=== PATIENT | male | born 1985 | race African-American/Black ===

== ENCOUNTER 2016-11-11 16:31 | Emergency (ER) | payer SELFPAY ==
[~2016-11-11] VITALS: Ht 185.4 cm; Wt 107.0 kg
[~2016-11-11 16:31] MED LIST: DOXY100T PO; Z.0.NO CURRENT MEDS
[2016-11-11 16:35] VITALS: BP 125/74; PULSE 71; RESP 14; TEMP 97.6; O2SAT 98
--- NOTE | 2016-11-11 17:41 | PD ---
HPI . Penile discharge 2 days Chief Complaint: Complaint Time Seen by Provider: 17:41 Travel History International Travel<30 days: No Contact w/Intl Traveler<30days: No Traveled to known affect area: No History of Present Illness HPI 31-year-old male with no significant past medical history here with complaints of penile discharge for 2 days. Patient said he had unprotected sex proximally 4 days ago and noticed the penis discharge about 2 days ago. Patient tells me the discharge is mucus-looking. He denies any pain upon urination. He denies any fever or chills. Has no other complaints. PFSH Past Medical History Asthma: No Autoimmune Disease: No Blood Disorders: No Anxiety: No Depression: No Heart Rhythm Problems: No Cardiovascular Problems: No Chest Pain: No Cystic Fibrosis: No Diminished Hearing: No Genitourinary: No Hypertension: No Musculoskeletal: No Neurologic: No Psychiatric: No Respiratory: No Immunizations Current: Yes Seizures: No Sickle Cell Disease: No Sleep Apnea: No Past Surgical History Abdominal Surgery: Yes (HERNIA REPAIR A CHILD) Cardiac Surgery: No Ear Surgery: No Endocrine Surgery: No Eye Surgery: No Genitourinary Surgery: No Gynecologic Surgery: No Neurologic Surgery: No Oral Surgery: No Thoracic Surgery: No Other Surgery: Yes (HERNIA AT AGE 4) Social History Alcohol Use: No Tobacco Use: No Substance Use: No Allergies-Medications (Allergen,Severity, Reaction): Coded Allergies: No Known Allergies (Verified , 11/11/16) Reported Meds & Prescriptions Reported Meds & Active Scripts Active Azithromycin 500 Mg Tab 1,000 Mg PO ONCE Review of Systems General / Constitutional: No: Fever Eyes: No: Visual changes HENT: No: Headaches Cardiovascular: No: Chest Pain or Discomfort Respiratory: No: Shortness of Breath Gastrointestinal: No: Abdominal Pain Genitourinary: No: Dysuria, Discharge Musculoskeletal: No: Pain Skin: No Rash Neurologic: No: Weakness Psychiatric: No: Depression Endocrine: No: Polydipsia Hematologic/Lymphatic: No: Easy Bruising Physical Exam Narrative GENERAL: AAO x 3, no acute distress, Well-nourished, well-developed patient. SKIN: Warm and dry. No visible rashes or bruising. HEAD: Normocephalic and atraumatic. EYES: No scleral icterus. No injection or drainage. ENT: No nasal drainage noted. Mucous membranes pink. Airway patent. NECK: Supple, trachea midline. No JVD. CARDIOVASCULAR: Regular rate and rhythm without murmurs, gallops, or rubs. RESPIRATORY: Breath sounds equal bilaterally. No accessory muscle use. No rhonchi or rales. GASTROINTESTINAL: Abdomen soft, non-tender, nondistended. GENITAL: Emiliano RN present, + penile discharge, white/yellow present. no abnormal lesions, no testicular swelling EXTREMITIES: No cyanosis or edema. BACK: Nontender without obvious deformity. No CVA tenderness. PSYCH: AAO x 3, normal affect. Data Data Last Documented VS Vital Signs Date Time Temp Pulse Resp B/P Pulse Ox O2 Delivery O2 Flow Rate FiO2 11/11/16 16:35 97.6 71 14 125/74 98 Orders Urinalysis - C+S If Indicated (11/11/16 17:46) Gc And Chlamydia Pcr (11/11/16 17:46) Ceftriaxone Inj (Rocephin Inj) (11/11/16 18:00) Sodium Chloride 0.9% Flush (Ns Flush) (11/11/16 18:00) Lidocaine 1% Inj (50 Ml) (Xylocaine 1% I (11/11/16 18:00) Urine Culture (11/11/16 17:55) Labs Laboratory Tests Test 11/11/16 17:55 Urine Color YELLOW Urine Turbidity HAZY Urine pH 5.5 Urine Specific [place] 1.021 Urine Protein NEG mg/dL Urine Glucose (UA) NEG mg/dL Urine Ketones NEG mg/dL Urine Occult Blood SMALL Urine Nitrite NEG Urine Bilirubin NEG Urine Urobilinogen LESS THAN 2.0 MG/DL Urine Leukocyte Esterase LARGE Urine RBC 10 /hpf Urine WBC 100 /hpf Urine Mucus FEW /lpf Microscopic Urinalysis Comment CULTURE INDICATED MDM Medical Decision Making Medical Screen Exam Complete: Yes Emergency Medical Condition: Yes Medical Record Reviewed: Yes Differential Diagnosis Urethritis, gonorrhea, chlamydia, less likely syphilis Narrative Course 31-year-old male with no significant past medical history here with complaints of penile discharge for 2 days. Patient said he had unprotected sex proximally 4 days ago and noticed the penis discharge about 2 days ago. Patient tells me the discharge is mucus-looking. He denies any pain upon urination. He denies any fever or chills. Has no other complaints. Patient seen and examined. He does have a penile discharge. I will treat for urethritis and cover for gonorrhea and chlamydia. I will administer Rocephin in the emergency department. He has been advised to take azithromycin as an outpatient. I discussed that he needs to discuss these issues with his partner. We will follow-up with test results and notify him if there are any abnormalities. I recommend further testing for STD panel including syphilis, HIV, etc. Laboratory Tests Test 11/11/16 17:55 Urine Color YELLOW Urine Turbidity HAZY Urine pH 5.5 Urine Specific [place] 1.021 Urine Protein NEG mg/dL Urine Glucose (UA) NEG mg/dL Urine Ketones NEG mg/dL Urine Occult Blood SMALL Urine Nitrite NEG Urine Bilirubin NEG Urine Urobilinogen LESS THAN 2.0 MG/DL Urine Leukocyte Esterase LARGE Urine RBC 10 /hpf Urine WBC 100 /hpf Urine Mucus FEW /lpf Microscopic Urinalysis Comment CULTURE INDICATED Patient verbalized understanding of instructions, questions were answered, and thanked me for their care. I advised them if their condition worsens, please return to the nearest emergency room for further care. Diagnosis Primary Impression: Urethritis Patient Instructions: General Instructions, Nonspecific Urethritis in Men (ED) Additional Instructions: Please return to emergency department if your symptoms return or worsen. Follow up with your primary care provider. Take medications as prescribed. Please follow-up with your primary care provider for further testing. Med/Other Pt SpecificInfo: Prescription(s) given Scripts Azithromycin 500 Mg Tab1,000 Mg PO ONCE #2 TAB Ref 0 Prov:Chiquita Vasquez MD 11/11/16 Disposition: 01 DISCHARGE HOME Condition: Stable Adelita Santillan Nov 11, 2016 17:41
[2016-11-11] MEDS ORDERED: AZIT500T2 PO (17:52)
[2016-11-11] MEDS ORDERED: SODIUM CHLORIDE 0.9% FLUSH 10 ML FLUSH IVF PRN (18:00)
[2016-11-11] MEDS ORDERED: LIDOCAINE HCL 1% 50 ML VIAL XX ONE (18:00)
[2016-11-11] MEDS ORDERED: cefTRIAXone 250 MG VIAL IM ONE (18:00)
[2016-11-11 18:15] LABS: BLOOD, URINE SMALL (NEG); GLUCOSE,URINE NEG (NEG); KETONE, URINE NEG (NEG); MUCUS URINE FEW /lpf (OCC); NITRITE,URINE NEG (NEG); PH, URINE 5.5 (5.0-8.5); URINE COLOR YELLOW (YELLW/STRAW)
[2016-11-11 18:16] LABS: COMMENT (UR) CULTURE INDICATED; CULTURE IF INDICATED CULTURE INDICATED
[2016-11-11 20:43] LABS: CHLAMYDIA PCR NOT DETECTED (NOT DETECT); NEISSERIA PCR DETECTED (NOT DETECT)
== END 2016-11-11 18:43 | disposition home or self-care (01) ==
LOC: NETRI 16:31
DX: N34.2 Other urethritis (principal); A54.9 Gonococcal infection, unspecified
CPT/HCPCS: 81001; 87086; 87491; 87591; 96372; 99283; J0696

== ENCOUNTER 2017-10-24 18:43 | Emergency (ER) | payer SELFPAY ==
[~2017-10-24] VITALS: Ht 188 cm; Wt 100.0 kg
[~2017-10-24 18:43] MED LIST changes: +AZIT500T2 PO; -DOXY100T PO; -Z.0.NO CURRENT MEDS
[2017-10-24 19:47] VITALS: BP 147/84; PULSE 67; RESP 18; TEMP 97.5; O2SAT 97
[2017-10-24 20:37] LABS: BACTERIA, URINE FEW /hpf; BILIRUBIN, URINE NEG (NEG); BLOOD, URINE SMALL (NEG); GLUCOSE,URINE NEG (NEG); KETONE, URINE NEG (NEG); MUCUS URINE MANY /lpf (OCC); NITRITE,URINE NEG (NEG); SQUAMOUS EPITHELIAL CELL URINE <1 /hpf (0-5); URINE COLOR YELLOW (YELLW/STRAW); URINE LEUKOCYTE ESTERASE LARGE (NEG)
--- NOTE | 2017-10-24 21:44 | PD ---
HPI Chief Complaint: Complaint Time Seen by Provider: 21:30 Travel History International Travel<30 days: No Contact w/Intl Traveler<30days: No Traveled to known affect area: No History of Present Illness HPI 32-year-old black male presents emergency department we will complains of a urethral discharge after unprotected intercourse. Positive increased urinary frequency, urgency and dysuria. He denies any rashes or lesions. No fever chills. PFSH Past Medical History Medical History: Denies Significant Hx Asthma: No Autoimmune Disease: No Blood Disorders: No Anxiety: No Depression: No Heart Rhythm Problems: No Cardiovascular Problems: No Chest Pain: No Cystic Fibrosis: No Diminished Hearing: No Genitourinary: No Hypertension: No Musculoskeletal: No Neurologic: No Psychiatric: No Respiratory: No Immunizations Current: Yes Seizures: No Sickle Cell Disease: No Sleep Apnea: No Tetanus Vaccination: < 5 Years Past Surgical History Abdominal Surgery: Yes (HERNIA REPAIR A CHILD) Cardiac Surgery: No Ear Surgery: No Endocrine Surgery: No Eye Surgery: No Genitourinary Surgery: No Gynecologic Surgery: No Neurologic Surgery: No Oral Surgery: No Thoracic Surgery: No Other Surgery: Yes (HERNIA AT AGE 4) Social History Alcohol Use: Yes ("I HAVEN'T LATELY") Tobacco Use: Yes ("SOMEWHAT") Substance Use: No Allergies-Medications (Allergen,Severity, Reaction): Coded Allergies: No Known Allergies (Verified , 11/11/16) Reported Meds & Prescriptions Reported Meds & Active Scripts Active Azithromycin 500 Mg Tab 1,000 Mg PO ONCE Review of Systems Except as stated in HPI: all other systems reviewed are Neg Physical Exam Narrative GENERAL: This is a well-nourished, well-developed patient, in no apparent distress. SKIN: No rashes, ecchymoses or lesions. Warm and dry. HEAD: Atraumatic. Normocephalic. EYES: PERRL, EOMI, no discharge or injection. No scleral icterus. EARS: Clear NOSE: Nasal turbinates appear normal. THROAT: Mucosa pink and moist. Airway patent. NECK: Trachea midline. supple, moves head freely. LUNGS: Clear to auscultation. CV: Regular in rhythm. ABDOMEN: Soft nontender. EXT: No clubbing cyanosis or edema. GENITOURINARY: Circumcised. Testes descended bilaterally without evidence of rotation. No lesions or erythema. Positive yellowish-green urethral discharge. Data Data Last Documented VS Vital Signs Date Time Temp Pulse Resp B/P (MAP) Pulse Ox O2 Delivery O2 Flow Rate FiO2 10/24/17 19:47 97.5 67 18 147/84 (105) 97 Orders Orders Urinalysis - C+S If Indicated (10/24/17 19:50) Urine Culture (10/24/17 19:53) Gc And Chlamydia Pcr (10/24/17 21:31) Azithromycin Powd Pack (Zithromax Powd P (10/24/17 21:45) Ceftriaxone Inj (Rocephin Inj) (10/24/17 21:45) Ed Discharge Order (10/24/17 21:34) Labs Laboratory Tests Test 10/24/17 19:53 Urine Color YELLOW Urine Turbidity HAZY Urine pH 6.0 Urine Specific [place] 1.021 Urine Protein TRACE mg/dL Urine Glucose (UA) NEG mg/dL Urine Ketones NEG mg/dL Urine Occult Blood SMALL Urine Nitrite NEG Urine Bilirubin NEG Urine Urobilinogen LESS THAN 2.0 MG/DL Urine Leukocyte Esterase LARGE Urine RBC 11 /hpf Urine WBC 158 /hpf Urine Squamous Epithelial Cells <1 /hpf Urine Bacteria FEW /hpf Urine Mucus MANY /lpf Microscopic Urinalysis Comment CULTURE INDICATED MDM Medical Decision Making Medical Screen Exam Complete: Yes Emergency Medical Condition: Yes Medical Record Reviewed: Yes Interpretation(s) Laboratory Tests Test 10/24/17 19:53 Urine Color YELLOW Urine Turbidity HAZY Urine pH 6.0 Urine Specific [place] 1.021 Urine Protein TRACE mg/dL Urine Glucose (UA) NEG mg/dL Urine Ketones NEG mg/dL Urine Occult Blood SMALL Urine Nitrite NEG Urine Bilirubin NEG Urine Urobilinogen LESS THAN 2.0 MG/DL Urine Leukocyte Esterase LARGE Urine RBC 11 /hpf Urine WBC 158 /hpf Urine Squamous Epithelial Cells <1 /hpf Urine Bacteria FEW /hpf Urine Mucus MANY /lpf Microscopic Urinalysis Comment CULTURE INDICATED Differential Diagnosis MDM: Moderate Differential diagnoses: Chlamydia, gonorrhea, syphilis, chancroid, hepatitis, HIV, herpes Narrative Course Patient's exam is consistent with gonorrhea. Patient is given Rocephin 250 mg IM and Zithromax 1 g p.o. Patient has been counseled on unprotected intercourse. Diagnosis Primary Impression: Gonorrhea urethritis Patient Instructions: General Instructions Additional Instructions: Rest. Partner notification. Follow-up with the [facility] Department for further STD testing such as HIV, syphilis and hepatitis. No intercourse until all partners treated. Always use a condom. Return to the ER if any problems. Med/Other Pt SpecificInfo: No Meds Exist/No RX given Disposition: 01 DISCHARGE HOME Condition: Pavan Hassan Oct 24, 2017 21:44
[2017-10-24] MEDS ORDERED: AZITHROMYCIN PWD FOR SUSP 1 GM PACKET PO ONE (21:45)
[2017-10-24] MEDS ORDERED: cefTRIAXone 250 MG VIAL IM ONE (21:45)
== END 2017-10-24 21:56 | disposition home or self-care (01) ==
LOC: NEPD 18:43
DX: A54.01 Gonococcal cystitis and urethritis, unspecified (principal); Z72.0 Tobacco use
CPT/HCPCS: 81001; 87086; 87491; 87591; 96372; 99283; J0696

== ENCOUNTER 2017-12-31 09:44 | Emergency (ER) | payer SELFPAY ==
[~2017-12-31] VITALS: Ht 188 cm; Wt 95.0 kg
[2017-12-31 09:57] VITALS: BP 140/79; PULSE 82; RESP 20; TEMP 97.6; O2SAT 99
[2017-12-31] MEDS ORDERED: ERYTOIN10 LEFT EYE (10:08)
[2017-12-31] MEDS ORDERED: LIDOCAINE HCL 1% 50 ML VIAL XX ONE (10:15)
[2017-12-31] MEDS ORDERED: AZITHROMYCIN PWD FOR SUSP 1 GM PACKET PO ONE (10:15)
[2017-12-31] MEDS ORDERED: cefTRIAXone 250 MG VIAL IM ONE (10:15)
--- NOTE | 2017-12-31 10:17 | PD ---
HPI Chief Complaint: Eye Problems/Injury Time Seen by Provider: 10:00 Travel History International Travel<30 days: No Contact w/Intl Traveler<30days: No Traveled to known affect area: No History of Present Illness HPI 32-year-old male presents to the ED for evaluation of 3 day history of redness of the left eye, yusef sensation of the left eye, increased tearing and morning discharge of the left eye. He denies vision changes, cold or flu symptoms. He also complains of penile discharge, yellow in color 2 days. He denies dysuria , hematuria, penile pain, testicular pain, increased urgency, increased frequency. He endorses unprotected sex with a female partner "about a week ago. " He is unsure if the partner is experiencing any symptoms. States symptoms are similar to previous STI. No treatment attempted at home. PFSH Past Medical History Asthma: No Autoimmune Disease: No Blood Disorders: No Anxiety: No Depression: No Heart Rhythm Problems: No Cardiovascular Problems: No Chest Pain: No Cystic Fibrosis: No Diminished Hearing: No Genitourinary: No Hypertension: No Musculoskeletal: No Neurologic: No Psychiatric: No Respiratory: No Immunizations Current: Yes Seizures: No Sickle Cell Disease: No Sleep Apnea: No Past Surgical History Abdominal Surgery: Yes (HERNIA REPAIR A CHILD) Cardiac Surgery: No Ear Surgery: No Endocrine Surgery: No Eye Surgery: No Genitourinary Surgery: No Gynecologic Surgery: No Neurologic Surgery: No Oral Surgery: No Thoracic Surgery: No Other Surgery: Yes (HERNIA AT AGE 4) Social History Alcohol Use: Yes ("I HAVEN'T LATELY") Tobacco Use: Yes ("SOMEWHAT") Substance Use: No Allergies-Medications (Allergen,Severity, Reaction): Coded Allergies: No Known Allergies (Verified , 11/11/16) Reported Meds & Prescriptions Reported Meds & Active Scripts Active Erythromycin Opth Oint 5 Mg/Gm Oint 1 Applic LEFT EYE QID 5 Days Azithromycin 500 Mg Tab 1,000 Mg PO ONCE Review of Systems Except as stated in HPI: all other systems reviewed are Neg Physical Exam Narrative GENERAL: Well-nourished, well-developed -[place] male in no acute distress. SKIN: Warm and dry. HEAD: Normocephalic. Atraumatic. EYES: No scleral icterus. Left eye mildly injected, increased tearing. Small amount of yellow discharge in the medial canthus. PERRLA. EOMI. ENT: Pearly gaston tympanic membranes bilaterally. Nasal mucosa is moist. Oropharynx without erythema, edema or exudate. NECK: Supple, trachea midline. No JVD or lymphadenopathy. CARDIOVASCULAR: Regular rate and rhythm without murmurs, gallops, or rubs. RESPIRATORY: Breath sounds clear and equal bilaterally. No accessory muscle use. GASTROINTESTINAL: Abdomen soft, non-tender, nondistended. + Bowel sounds GENITOURINARY: Circumcised. Testes descended bilaterally without evidence of rotation. No lesions or erythema. No urethral discharge. MUSCULOSKELETAL: No cyanosis, or edema. Walks with a normal gait. BACK: Nontender without obvious deformity. No CVA tenderness. Data Data Last Documented VS Vital Signs Date Time Temp Pulse Resp B/P (MAP) Pulse Ox O2 Delivery O2 Flow Rate FiO2 12/31/17 09:57 97.6 82 20 140/79 (99) 99 Orders Orders Urinalysis - C+S If Indicated (12/31/17 10:06) Gc And Chlamydia Pcr (12/31/17 10:06) Azithromycin Powd Pack (Zithromax Powd P (12/31/17 10:15) Ceftriaxone Inj (Rocephin Inj) (12/31/17 10:15) Lidocaine 1% Inj (Xylocaine 1% Inj) (12/31/17 10:30) Ed Discharge Order (12/31/17 10:23) Labs Laboratory Tests Test 12/31/17 10:10 [facility] Medical Decision Making Medical Screen Exam Complete: Yes Emergency Medical Condition: Yes Differential Diagnosis Urethritis versus gonorrhea versus chlamydia versus conjunctivitis versus other Narrative Course 32-year-old male presents to the ED for evaluation of 3 day history of redness of the left eye, yusef sensation of the left eye, increased tearing and morning discharge of the left eye. He denies vision changes, cold or flu symptoms. He also complains of penile discharge, yellow in color 2 days. He denies dysuria , hematuria, penile pain, testicular pain. He endorses unprotected sex with a female partner "about a week ago." He is unsure if the partner is experiencing any symptoms. States symptoms are similar to previous STI. Vitals reviewed. On exam the left eye is erythematous with increased tearing and discharge from the medial canthus. exam unremarkable. and chlamydia PCR pending. Patient opted for empiric treatment for gonorrhea and chlamydia and this was provided. I reviewed his record. He has had 6 visits versus similar symptoms. I counseled him extensively on safer sex methods. He is prescribed a course of erythromycin for the eye. He is instructed to abstain from sex, follow up with the health department for full battery of testing. Return to the ED for worsening symptoms. He indicated understanding the instructions. He is stable and discharged home. Diagnosis Primary Impression: Urethritis Additional Impression: Conjunctivitis Qualified Codes: H10.9 - Unspecified conjunctivitis Referrals: Primary Care Physician [facility] Dept. Patient Instructions: Conjunctivitis (ED), General Instructions, Nonspecific Urethritis in Men (ED), Sexually Transmitted Diseases (ED) Additional Instructions: Rest, hydrate. Apply erythromycin ointment in the affected eye 4 times a day 5-7 days. Do not touch the tip of the applicator to the eye. Treat the other eye if it becomes affected. Use condoms for safer sex practice. Notify all partners of symptoms. Abstain from sex until test of cure is performed at the health department in 1 week. Follow-up with the health department in 1 week as discussed for full battery of STD testing and test of cure. Return to the ED for worsening symptoms or any urgent or emergent medical condition. Med/Other Pt SpecificInfo: Prescription(s) given Scripts Erythromycin Opth Oint (Erythromycin Opth Oint) 5 Mg/Gm Oint 1 APPLIC LEFT EYE QID for Infection for 5 Days, #1 TUBE 0 Refills Prov: Shonda Norton MD 12/31/17 Disposition: 01 DISCHARGE HOME Condition: Stable Corinna Jain December 31, 2017 10:17
[2017-12-31] MEDS ORDERED: LIDOCAINE HCL 1% 20 ML VIAL INFIL ONE (10:30)
[2017-12-31 10:47] LABS: BILIRUBIN, URINE NEG (NEG); BLOOD, URINE SMALL (NEG); GLUCOSE,URINE NEG (NEG); KETONE, URINE NEG (NEG); MUCUS URINE FEW /lpf (OCC); NITRITE,URINE NEG (NEG); PH, URINE 5.5 (5.0-8.5); SQUAMOUS EPITHELIAL CELL URINE <1 /hpf (0-5); URINE COLOR YELLOW (YELLW/STRAW)
[2017-12-31 10:52] LABS: URINE LEUKOCYTE ESTERASE TRACE (NEG)
== END 2017-12-31 10:55 | disposition home or self-care (01) ==
LOC: NEPK 09:44
DX: N34.2 Other urethritis (principal); H10.9 Unspecified conjunctivitis; Z72.0 Tobacco use
CPT/HCPCS: 81001; 87086; 87491; 87591; 96372; 99283; J0696